=== PATIENT | male | born 1995 ===

== ENCOUNTER 2025-01-11 16:52 | Emergency (ER) | payer OTHER, SELFPAY ==
--- NOTE | 2025-01-11 17:02 | ED.AMS ---
HPI - Altered Mental Status General Chief Complaint: ETOH/Substance Use Stated Complaint: etoh Time Seen by Provider: 01/11/25 17:01 History of Present Illness ED Provider: Jin Ratliff MD HPI narrative: [age] male brought after found to be intoxicated from the library. There was no reported trauma, agitation, psychosis or expression of self-harm Patient not cooperative despite multiple attempts to deescalate verbally on arrival. I later had nursing staff safely sedate him intramuscularly. Based on my clinical examination and the provided history there is no indication the patient has an acute medical emergency indicating lab work or other testing Related Data Allergies Allergy/AdvReac Type Severity Reaction Status Date / Time No Known Allergies Allergy Verified 01/14/25 21:29 [facility] Past Medical History Medical History Alcohol intoxication Social History Social History Unable to assess alcohol history related to: Unknown Alcohol intake: current Alcohol type: hard liquor Smoked in Last 30 Days: Yes Use of substances other than those prescribed or required for medical reasons: No Any prior treatment program specific to substance use: No Advance Directives: No Advance Directives Information Provided: No Do you have a plan to hurt others: No Plan Physical Exam ED Vital Signs: Vital Signs - 24 hr 01/11/25 17:49 01/11/25 20:56 01/11/25 22:06 Pulse Rate 102 H 78 65 Respiratory Rate 18 16 16 Blood Pressure 104/56 L 99/61 85/50 L Pulse Oximetry 97 99 95 Oxygen Delivery Method Room Air Room Air Room Air 01/12/25 01:18 01/12/25 02:20 01/12/25 04:01 Pulse Rate 58 65 Respiratory Rate 17 17 18 Blood Pressure 84/49 L 82/47 L 93/57 L Pulse Oximetry 98 100 Oxygen Delivery Method Room Air Room Air 01/12/25 05:24 01/12/25 06:01 01/12/25 06:12 Pulse Rate 50 85 97 Respiratory Rate 18 Blood Pressure 97/60 104/67 97/63 Pulse Oximetry 100 Oxygen Delivery Method Room Air BMI result Body Mass Index 26.6 Const Other: EXAM: Gen: Alert, with slurred speech occasionally aggressive behavior, uncooperative. No obvious external signs of trauma. Well dressed and clean Head: Atraumatic Eyes: Anicteric, Normal conjunctiva. ENT: Moist mucosa, no pallor. ? Neck: Supple. Respiratory: Breathing comfortably, No distress.Clear to auscultation bilaterally, symmetric chest expansion, No wheeze, rales, ronchi. Cardiovascular: Regular rate and rhythm. No murmurs or rub. Well perfused periphery, warm extremities. No edema. ? Abdominal: Soft, no objective distension. No palpable masses or obvious organomegaly. No focal tenderness, no guarding, no rebound tenderness or other peritoneal findings. : No flank tenderness. Neuro: Alert. Gross movement of all extremities intact. ? Vital signs: See flowsheet Medications Administered Discontinued Medications Generic Name Dose Route Start Last Admin Trade Name Freq PRN Reason Stop Dose Admin Lactated Ringer's 1,000 mls @ 999 mls/hr 01/12/25 01:45 01/12/25 03:32 Lr IV 01/12/25 02:45 Infused .Q1H1M GHADA Infusion Sodium Chloride 1,000 mls @ 999 mls/hr 01/12/25 03:30 01/12/25 04:35 Ns IV 01/12/25 04:30 Infused .Q1H1M ONE Infusion Lactated Ringer's 500 mls @ 999 mls/hr 01/12/25 05:35 01/12/25 06:40 Lr IVCONT 01/12/25 06:05 Infused .Q31M ONE Infusion Midazolam HCl 5 mg 01/11/25 17:25 01/11/25 17:35 Midazolam Hcl 5 Mg/Ml Vial IM 01/11/25 17:26 5 mg ONCE ONE Administration Midodrine 10 mg 01/12/25 04:08 01/12/25 04:10 Midodrine Hcl 10 Mg Tablet PO 01/12/25 04:09 10 mg ONCE ONE Administration Olanzapine 5 mg 01/11/25 17:25 01/11/25 17:46 Olanzapine 10 Mg Vial IM 01/11/25 17:26 5 mg STAT STA Administration Medical Decision Making Medical Decision Making [facility] Narrative: [age] male found publicly intoxicated. Brought here for safety and evaluation. No obvious signs of traumatic injury, acute psychosis, clear obvious emergent toxidrome to address. Sedated for safety we will reassess __ Patient will need clinical reassessment when sober and safe for discharge. Signed out to overnight physician at to a.m. ___ Weeping but has had some borderline lower blood pressures 80s over 50s. At this time I think it is reasonable to establish IV access get basic blood work and give IV crystalloid as he may be dehydrated 6 am: dr sanchez>. Patient has stable vitals labs were stable taking p.o. fluids received IV fluids also blood pressure stable patient does not want to be seen by care team for detox wants to go home will do detox off his own ambulatory in the ED had food Lab Data MDM Lab Attestation statement: I reviewed the patient's lab results. 01/12/25 01:55 01/12/25 01:55 Labs: Lab Results 01/12/25 Range/Units 01:55 WBC 7.6 (4.8-10.8) X10*3/uL RBC 4.84 (4.60-5.80) X10*6/uL Hgb 16.1 (14.0-18.0) g/dl Hct 45.1 (42.0-52.0) % MCV 93.2 (80.0-98.0) fL MCH 33.3 H (27.0-33.0) pg MCHC 35.7 (31.0-36.0) g/dl RDW 12.9 (11.0-16.0) % Plt Count 232 (160-400) X10*3/uL MPV 10.5 (9.4-12.4) fL Immature Gran % (Auto) 0.5 H (0.0-0.4) % Neut % (Auto) 39.1 L (45-73) % Lymph % (Auto) 47.8 H (20-40) % [place] % (Auto) 6.6 (2-11) % Eos % (Auto) 5.5 H (0-4) % Baso % (Auto) 0.5 (0-2) % Lymph # (Auto) 3.6 (1.2-4.9) X10*3/uL [place] # (Auto) 0.5 (0.1-1.2) X10*3/uL Eos # (Auto) 0.4 (0.0-0.4) X10*3/uL Baso # (Auto) 0.0 (0.0-0.2) X10*3/uL Abs Immat Gran (auto) 0.04 H (0.00-0.03) X10*3/uL Absolute Neuts (auto) 3.0 (2.0-8.3) x10*3/uL Absolute Nucleated RBC 0.000 (0.0-0.012) X10*3/uL Nucleated RBC % (auto) 0.0 (0.0-0.2) /100WBC Sodium 146 H (135-145) mmol/L Potassium 3.7 (3.3-5.1) mmol/L Chloride 110 H (96-108) mmol/L Carbon Dioxide 23 (22-29) mmol/L Anion Gap 17 (12-20) BUN 12 (9-16) mg/dL Creatinine 0.96 (0.5-1.4) mg/dL Estim Creat Clear Calc 97.8 Estimated GFR > 60 Random Glucose 89 (60-115) mg/dL Calcium 9.0 (8.4-10.2) mg/dL Magnesium 2.4 (1.6-2.6) mg/dL Total Bilirubin 1.0 (0.0-1.0) mg/dL AST 41 H (5-37) U/L ALT 34 (0-40) U/L Alkaline Phosphatase 55 (39-117) U/L Total Protein 6.9 (6.5-8.0) g/dL Albumin 4.2 (3.5-5.0) g/dL Ethyl Alcohol 212 mg/dL Discharge Plan Discharge Clinical Impression: Alcoholic intoxication Patient Disposition: Home, Self-Care Instructions: Abuse of Alcohol (ED) Additional Instructions: Stop drinking alcohol Follow up with detox Interventions: ED Discharge Assessment Last Done: 01/12/25 06:38 Discharge Date/Time: 01/12/25 06:40 Print Language: Unable To Collect
[2025-01-11 17:04] VITALS: BP 133/96; PULSE 101; O2SAT 96; BMI 26.6
[2025-01-11] MEDS: Midazolam HCl 5 MG/ML VIAL IM (17:35)
--- NOTE | 2025-01-11 17:45 | PC.NURSE ---
Pt uncooperative with staff upon arrival. This RN, MD Abdi, and security at bedside. Pt able to be changed over with multiple redirection from staff. Belongings locked in soco port shelf #2. Pt began verbally aggressive with staff, yelling at security/attempting to get out of bed with unsteady gait. IM medications given @ 1735- refer to MAR for medications. Pt remained uncooperative with staff/attempting to get out of bed, security remained at bedside for safety. 1805- pt able to be redirected into bed, hooked up to automotive quality manager/BP and O2 to monitor. Pt BP became soft, 90s/50s. MD Abdi aware, no new orders at this time. Respirations even and unlabored, no increased wob/sob noted, visible rise and fall of chest, NSR on automotive quality manager, HR- 80s. Call rome within reach, all needs met at this time.
[2025-01-11] MEDS: OLANZapine 10 MG VIAL 5 MG IM (17:46)
[2025-01-11 17:49] VITALS: BP 104/56; PULSE 102; RESP 18; O2SAT 97
[2025-01-11 20:56] VITALS: BP 99/61; PULSE 78; RESP 16; O2SAT 99
--- NOTE | 2025-01-11 21:13 | PC.NURSE ---
walked OOB, unsteady, not redirectable, pushing staff to get out of the way. speech slow, mumbled. appears somnolent. heavy assist to bathroom. now back in room sitting in bedside.
[2025-01-11 22:06] VITALS: BP 85/50; PULSE 65; RESP 16; O2SAT 95
--- NOTE | 2025-01-11 23:02 | MHC.EDTECH ---
this tech assumed care of pt @[id number]
[2025-01-12] VITALS (7 sets, daily range): BP systolic 82–104; BP diastolic 47–67; PULSE 50–97; RESP 16–18; TEMP 36.7; O2SAT 98–100
[2025-01-12] MEDS: Lactated Ringers 1,000 ML 999 ML IV (02:01)
[2025-01-12 02:02] LABS: MANUAL DIFF FLAG NO
[2025-01-12 02:04] LABS: Basophils Percent Auto 0.5 % (0-2); Eosinophils Absolute Auto 0.4 X10*3/uL (0.0-0.4); Eosinophils Percent Auto 5.5 % (0-4); Hematocrit 45.1 % (42.0-52.0); Hemoglobin 16.1 g/dl (14.0-18.0); Imm Gran Abs Auto 0.04 X10*3/uL (0.00-0.03); Imm Gran Pct Auto 0.5 % (0.0-0.4); Lymphocytes Absolute Auto 3.6 X10*3/uL (1.2-4.9); Lymphocytes Percent Auto 47.8 % (20-40); Mean Corpuscular HGB Conc 35.7 g/dl (31.0-36.0); Mean Corpuscular Hemoglobin 33.3 pg (27.0-33.0); Mean Corpuscular Volume 93.2 fL (80.0-98.0); Mean Platelet Volume 10.5 fL (9.4-12.4); Monocytes Absolute Auto 0.5 X10*3/uL (0.1-1.2); Monocytes Percent Auto 6.6 % (2-11); Neutrophils Percent Auto 39.1 % (45-73); Platelet Count 232 X10*3/uL (160-400); Red Blood Count 4.84 X10*6/uL (4.60-5.80); Red Cell Distribution Width 12.9 % (11.0-16.0); White Blood Count 7.6 X10*3/uL (4.8-10.8)
[2025-01-12 02:32] LABS: Alanine Aminotransferase 34 U/L (0-40); Albumin Level 4.2 g/dL (3.5-5.0); Alkaline Phosphatase 55 U/L (39-117); Anion Gap 17 (12-20); Aspartate Amino Transferase 41 U/L (5-37); Blood Urea Nitrogen 12 mg/dL (9-16); Carbon Dioxide 23 mmol/L (22-29); Chloride 110 mmol/L (96-108); Creatinine Clr Calc Pharmacy 97.8; Estimated Glomerular Filt Rate > 60; Ethanol 212 mg/dL; Glucose Random 89 mg/dL (60-115); Potassium 3.7 mmol/L (3.3-5.1); Sodium 146 mmol/L (135-145); Total Protein 6.9 g/dL (6.5-8.0)
[2025-01-12] MEDS: 0.9 % Sodium Chloride 1,000 ML 999 ML IV (03:34)
[2025-01-12 03:49] LABS: Magnesium 2.4 mg/dL (1.6-2.6)
[2025-01-12] MEDS: Midodrine HCl 10 MG TABLET PO (04:10)
[2025-01-12] MEDS: Lactated Ringers 500 ML 999 ML IVCONT (06:11)
--- NOTE | 2025-01-12 06:39 | PC.NURSE ---
denies SI. ambulates steadily wihtout assist. speaking clearly, cooperative. states he wants to leave for work. MD Javier aware
== END 2025-01-12 06:40 | disposition home or self-care (01) ==
PROVIDERS: Internal Medicine; Emergency Provider Emergency Medicine
DX: F10.129 Alcohol abuse with intoxication, unspecified (principal); Y90.7 Blood alcohol level of 200-239 mg/100 ml
CPT/HCPCS: 36415; 80053; 80307; 83735; 85025; 96360; 96361; 96372; 99284; 99285; J2250; J2359; J7120

== ENCOUNTER 2025-01-14 21:16 | Emergency (ER) | payer OTHER, SELFPAY ==
--- NOTE | 2025-01-14 21:26 | MHC.EDTECH ---
Pt searched by security (Jaylan)- only has a wallet and cellphone on him.
[2025-01-14 21:27] VITALS: BP 130/75; PULSE 110; RESP 18; TEMP 36.4; O2SAT 96; BMI 23.5
--- NOTE | 2025-01-14 21:29 | ED.ALCOHOL ---
HPI - Alcohol General Chief Complaint: ETOH/Substance Use Stated Complaint: ETOH Time Seen by Provider: 01/14/25 21:27 Source: patient and EMS Mode of arrival: EMS Limitations: no limitations History of Present Illness ED Provider: Dr. Eneida Eddy HPI narrative: Patient comes to the emergency room via ambulance for alcohol intoxication. Patient is too intoxicated to give any significant history. Patient states that he wants to go but is very intoxicated. Patient states that he at this time he does not have a sober ride. Patient denies any falls or any injuries. Patient states that he is just drunk. Related Data Allergies Allergy/AdvReac Type Severity Reaction Status Date / Time No Known Allergies Allergy Verified 01/14/25 21:29 Review of Systems Review of Systems: Patient has no complaints Yes Other (Patient too intoxicated to give any reliable history) [facility] Past Medical History Medical History Alcohol intoxication Social History Social History Unable to assess alcohol history related to: Unknown Alcohol intake: current Alcohol type: hard liquor Smoked in Last 30 Days: Yes Use of substances other than those prescribed or required for medical reasons: No Any prior treatment program specific to substance use: No Advance Directives: No Advance Directives Information Provided: No Do you have a plan to hurt others: No Plan Physical Exam ED Vital Signs: Vital Signs - 24 hr 01/14/25 21:27 01/14/25 22:12 01/15/25 00:00 Temperature 97.5 F 97.5 F Pulse Rate 110 H 92 97 Respiratory Rate 18 16 Blood Pressure 130/75 99/57 L 101/60 Pulse Oximetry 96 96 98 Oxygen Delivery Method Room Air Room Air Room Air 01/15/25 00:02 Temperature 97.5 F Pulse Rate 97 Respiratory Rate 16 Blood Pressure 101/60 Pulse Oximetry 98 Oxygen Delivery Method Room Air BMI result Body Mass Index 23.5 Const Other: Appearance: Alert. Oriented X3. Patient is intoxicated, has slurred speech. Unable to stand straight Eyes: Pupils equal, round and reactive to light. ENT: Pharynx normal. Neck: Normal inspection. Neck supple. No lymph nodes noted. No crepitus CVS: Normal heart rate and rhythm. Pulses normal. Normal S1 and S2 Respiratory: No respiratory distress. Breath sounds normal. No Wheezing. No rales Abdomen: Soft and nontender. No rigidity. No distention. Skin: Skin warm and dry. Normal skin color. Normal skin turgor. Extremities: No lower extremity edema. No Lacerations. No Rash Neuro: Intoxicated Psych: calm, cooperative Course Course Course Narrative: Patient denies SI or HI Patient admits that he has been drinking quite a bit. Per EMS, he consumed more than 10 nebs. Patient has a medical complaints Waiting for the patient to sober up and be discharged. Medical Decision Making Medical Decision Making [facility] Narrative: Patient declined detox At 21:52, patient's girlfriend arrived to the hospital. She is sober. Willing to take the patient home. Patient is still intoxicated, still able to hold a fairly coherent conversation, denies SI or HI. Patient is still requesting to be discharged home. Patient being discharged, physician observation ending at this time, 21:52 Differential Diagnosis Differential Diagnoses: The differential diagnosis associated with the presentation includes (Alcohol intoxication, polysubstance abuse) Admission/Observation Consideration of admission/observation: Escalation of care including admission/observation considered (Patient is under physician observation, waiting to become sober to be discharged) Discharge Plan Discharge Clinical Impression: Alcoholic intoxication Patient Disposition: Home, Self-Care Instructions: Alcohol Intoxication (ED), Abuse of Alcohol (ED) Additional Instructions: Alcohol use disorder You were seen in the Emergency Department today for treatment of alcohol use disorder.? You may have been given medications to help with your withdrawal symptoms.? Please do not drink alcohol with them. This is very dangerous and can cause respiratory depression or other adverse reactions depending on the medication. If you would like to cut down or stop your alcohol use please consider calling our outpatient Addiction Treatment office:? [facility] (M-F 9a-5p) [address] [place] [address] ? You have also been given a list of treatment providers in the area that can assist as well.? If you experience seizures, vomiting blood, black stools, falls, severe headache, chest pain, fevers, trouble breathing, hallucinations or any other concerns you need to call 911 or seek immediate care. Please stay hydrated. Interventions: ED Discharge Assessment Last Done: 01/15/25 00:02 Discharge Date/Time: 01/15/25 00:04 Print Language: Unable To Collect
--- NOTE | 2025-01-14 22:06 | PC.NURSE ---
pt has not been changed over due to intoxication, pt has been checked by security on arrival. pt is being discharged.
[2025-01-14 22:12] VITALS: BP 99/57; PULSE 92; O2SAT 96
--- NOTE | 2025-01-14 22:25 | PC.NURSE ---
pt girlfriend is here but she doesnt drive. she is calling the mom to come pick them up. girlfriend came with the pt in the ambulance.
--- NOTE | 2025-01-14 22:30 | PC.NURSE ---
pt is in a deep sleep. girlfriend states when he does drink he is hard to arrouse. discharge on hold at this time.
--- NOTE | 2025-01-14 22:53 | PC.NURSE ---
pt is difficult to arouse, girlfriend is in the waiting room and stated he sleeps hard when he drinks. pt is arousable to verbal with a touch to the shoulder and pt wakes up but is not able to verbalize how he feels.
[2025-01-15] VITALS: BP 101/60; PULSE 97; RESP 16; TEMP 36.4; O2SAT 98
--- NOTE | 2025-01-15 00:01 | PC.NURSE ---
pt has a sober ride home with the girlfriend's friend. pt ambulated with steay gait. to bathroom.
[2025-01-15 00:02] VITALS: BP 101/60; PULSE 97; RESP 16; TEMP 36.4; O2SAT 98
== END 2025-01-15 00:04 | disposition home or self-care (01) ==
LOC: HO.ED 22:01
PROVIDERS: Emergency Provider Emergency Medicine
DX: F10.129 Alcohol abuse with intoxication, unspecified (principal); Y90.9 Presence of alcohol in blood, level not specified
CPT/HCPCS: 99282; 99284

== ENCOUNTER 2025-01-19 17:57 | Emergency (ER) | payer OTHER, SELFPAY ==
[2025-01-19 18:08] VITALS: BP 138/84; PULSE 101; O2SAT 98
[2025-01-19 18:12] VITALS: BP 129/78; PULSE 104; RESP 18; TEMP 36.7; O2SAT 99; BMI 22.6
[2025-01-19 18:22] VITALS: BP 129/78; PULSE 104; RESP 18; TEMP 36.7; O2SAT 99
--- NOTE | 2025-01-19 18:40 | PC.NURSE ---
Patient significant intoxication, slurred speech, patient hyperverbal but remain calm and cooperative. Pt given water and security wanded. Pt only has vape pen on him and clothes at this time. Patient can no answer questions appropriately. MD will reassess when more sober. Patient very unsteady gait coming off EMS stretcher. MD aware. no cell changer at this time.
--- NOTE | 2025-01-19 19:05 | ED.GENADULT ---
HPI - General Adult General Chief complaint: ETOH/Substance Use Stated complaint: etoh, found lying on floor, pt is being difficult Time Seen by Provider: 01/19/25 18:09 Source: patient and EMS Limitations: other (intoxicated) History of Present Illness ED Provider: Carolyn Escobedo PA-C HPI narrative: 29-year-old male presents intoxicated. Patient was found intoxicated sleeping on the ground outside of a store, he had empty nips surrounding him. Patient was picked up by PD. Related Data Allergies Allergy/AdvReac Type Severity Reaction Status Date / Time No Known Allergies Allergy Verified 01/19/25 18:13 Review of Systems Review of Systems: Unable to obtain secondary to intoxication Yes all other systems are reviewed and are negative [facility] Past Medical History Attestation statement: The following information was validated with the patient. Medical History Alcohol intoxication Social History Social History Unable to assess alcohol history related to: Unknown Alcohol intake: current Alcohol type: hard liquor Smoked in Last 30 Days: Yes Use of substances other than those prescribed or required for medical reasons: Unknown Advance Directives: No Advance Directives Information Provided: No Do you have a plan to hurt others: No Plan Physical Exam ED Vital Signs: Vital Signs - 24 hr 01/19/25 18:12 01/19/25 18:22 01/19/25 22:19 Temperature 98.0 F 98.0 F 98.4 F Pulse Rate 104 H 104 H 84 Respiratory Rate 18 18 18 Blood Pressure 129/78 129/78 104/57 L Pulse Oximetry 99 99 98 Oxygen Delivery Method Room Air Room Air Room Air 01/20/25 01:49 Temperature 97.1 F Pulse Rate 102 H Respiratory Rate 20 Blood Pressure 128/72 Pulse Oximetry 100 Oxygen Delivery Method Room Air BMI result Body Mass Index 22.6 Const Other: Awake, no sign of head trauma on exam Orientation/consciousness: patient oriented x3 HENMT Other: Alcohol halitosis Resp Effort & Inspection: normal respiratory effort Cardio Other: Normal peripheral perfusion Skin Other: Warm dry no rash Neuro Other: Unsteady gait General: patient oriented x3, no focal motor deficits and CN's II-XI intact bilaterally Psych Other: Cooperative, pleasantly intoxicated Medications Administered Discontinued Medications Generic Name Dose Route Start Last Admin Trade Name Freq PRN Reason Stop Dose Admin Ondansetron HCl 8 mg 05/10/25 01:32 01/20/25 01:37 Ondansetron Odt 8 Mg Tab.Saroj SCHMID 01/20/25 01:33 8 mg ONCE ONE Administration Medical Decision Making Medical Decision Making [facility] Narrative: 29-year-old male presents intoxicated. Patient was found intoxicated sleeping on the ground outside of a store, he had empty nips surrounding him. Patient was picked up by PD. Problem: Presumed alcohol abuse History: Per patient which is minimal , and EMS I have considered the following differential diagnoses: Alcohol intoxication Plan: The patient will be observed in the emergency department until he is clinically sober, he truly does not require a medical assessment. Discharge Plan Discharge Clinical Impression: Alcoholic intoxication Patient Disposition: Home, Self-Care Instructions: Alcohol Intoxication (ED), Abuse of Alcohol (ED) Additional Instructions: Alcohol use disorder You were seen in the Emergency Department today for alcohol intoxication, you were monitored for your safety until you were clinically sober. It is concerning that you may have alcohol use disorder given you were seen just days ago in the emergency department for similar presentation. If you would like to cut down or stop your alcohol use please consider calling our outpatient Addiction Treatment office:? [facility] (M-F 9a-5p [address] [address] ? If you experience seizures, vomiting blood, black stools, falls, severe headache, chest pain, fevers, trouble breathing, hallucinations or any other concerns you need to call 911 or seek immediate care. Please stay hydrated. Print Language: Unable To Collect
[2025-01-19 22:19] VITALS: BP 104/57; PULSE 84; RESP 18; TEMP 36.9; O2SAT 98
--- NOTE | 2025-01-19 22:19 | PC.NURSE ---
pt remains resting in stretcher, vss, respirations even and unlabored.
[2025-01-20] MEDS: Ondansetron ODT 8 MG TAB.RAPDIS TRANSLINGU (01:37)
[2025-01-20 01:49] VITALS: BP 128/72; PULSE 102; RESP 20; TEMP 36.2; O2SAT 100
--- NOTE | 2025-01-20 01:50 | MHC.EDTECH ---
Pt refusing labs. Aga PEARL aware.
--- NOTE | 2025-01-20 03:02 | PC.NURSE ---
pt awake and alert at this time, pt walking around the ed and states he is ready for discharge, chrissy walden aware. security at bedside to return belongings and walk pt out.
[2025-01-20 03:03] VITALS: BP 128/72; PULSE 102; RESP 20; TEMP 36.2; O2SAT 100
== END 2025-01-20 03:03 | disposition home or self-care (01) ==
PROVIDERS: Emergency Provider Emergency Medicine
DX: F10.120 Alcohol abuse with intoxication, uncomplicated (principal); Y90.9 Presence of alcohol in blood, level not specified
CPT/HCPCS: 99283; 99284